=== PATIENT | female | born 1950 | race Caucasian/White ===

== ENCOUNTER 2023-02-01 08:08 | Inpatient (IN) ==
--- NOTE | 2022-12-02 14:22 | Anesthesiology Consultation ---
Date of Service December 02, 2022 Assessment & Plan (1) Encounter for pre-operative examination: Plan - will attempt to obtain copy of most recent AAA and carotid imaging. - cardiology 06/02/22: "...BP borderline, HR appropriate...denies CP...abnormal EKG-inferior and lateral ST depression indicative of RCA and LCx ischemia; normal nuclear testing, normal LV function 02/2021 with poor exercise tolerance 12/2020. 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 To surgeon's discretion if preop COVID testing is needed. Chart Review Chart Review: Pending: Refer to Additional Notes / Consult section and Patient NOT seen in Pre Admission Testing History Surgery Operation Date: 12/15/22 10:05 Proposed Procedures p L4-S1 Decompression and Fusion, Spinal Cord Monitoring - Dean Guillen DO Height/Weight Height: 5 ft 3.25 in Weight: 49.895 kg Allergies Allergy/AdvReac Type Severity Reaction Status Date / Time egg Allergy Swelling Verified 11/30/22 13:54 of Lip/Tongue/Throat erythromycin base Allergy Vomiting Verified 11/30/22 13:50 Medications Home Medications Medication Instructions Recorded Confirmed Last Taken Probiotic 1 cap PO QAM 11/30/22 11/30/22 Unknown aspirin 81 mg capsule 81 mg PO QPM 11/30/22 11/30/22 Unknown carvedilol 6.25 mg tablet 6.25 mg PO BID 11/30/22 11/30/22 Unknown fenofibrate nanocrystallized 145 145 mg PO QAM 11/30/22 11/30/22 Unknown mg tablet levothyroxine 25 mcg tablet 25 mcg PO QAM 11/30/22 11/30/22 Unknown lisinopril 5 mg tablet 5 mg PO QAM 11/30/22 11/30/22 Unknown omeprazole 20 mg delayed 20 mg PO QAM 11/30/22 11/30/22 Unknown release,disintegrating tablet psyllium seed (sugar) oral powder 2 tbsp PO QAM 11/30/22 11/30/22 Unknown rosuvastatin 20 mg tablet 20 mg PO QAM 11/30/22 11/30/22 Unknown Past Medical History Medical History AAA (abdominal aortic aneurysm) last check 07/2022 @ [facility] [place] Chronic back pain GERD (gastroesophageal reflux disease) History of depression History of DVT (deep vein thrombosis) LUE 3-4 years ago following vascular procedure. Treated with AC. History of gastric ulcer HLD (hyperlipidemia) HTN (hypertension) Hypothyroidism Osteoarthritis PONV (postoperative nausea and vomiting) Poor appetite Raynaud disease Past Family History Family History Other No family history of adverse response to anesthesia Past Surgical History Surgical History History of appendectomy History of bowel resection History of cataract surgery History of cholecystectomy History of colonoscopy History of D&C multiple History of esophagogastroduodenoscopy (EGD) History of hysterectomy History of intravascular stent placement LLE History of wisdom tooth extraction Social History Smoking Status: Current every day smoker tobacco type: cigarettes Smoking cigarettes per day: 1/2 ppd Do You Dip or Chew Tobacco: No Hx Alcohol Use: No Hx Substance Use: No substance use type: does not use Lab Results Anesthesia Preop Results Results Anesthesia Widget: WBC 9.34 K/ul (4.8-10.8) 11/26/22 Hgb 16.5 g/dl (12.0-16.0) H 11/26/22 Hct 48.9 % (37.0-47.0) H 11/26/22 Plt 311 K/uL (130-400) 11/26/22 Na 142 mmol/L (136-145) 11/26/22 K 4.1 mmol/L (3.5-5.1) 11/26/22 Cl 105 mmol/L (98-107) 11/26/22 CO2 32 mmol/L (21-32) 11/26/22 BUN 8 mg/dl (6-23) 11/26/22 Creat 0.73 mg/dl (0.6-1.2) 11/26/22 Glucose Level 104 mg/dl (70-99(Fasting)) H 11/26/22 PT 11.1 Seconds (9.0-12.0) 11/26/22 PTT 23.9 Seconds (21.0-31.0) 11/26/22 INR 1.0 (0.9-1.1) 11/26/22 Urine Color Yellow 11/26/22 Urine Appearance Clear (Clear) 11/26/22 Urine pH 7.0 (4.5-7.5) 11/26/22 Urine Specific [place] 1.012 (1.000-1.030) 11/26/22 Urine Protein Negative (Negative) 11/26/22 Urine Glucose (UA) Negative (Negative) 11/26/22 Urine Ketones Negative (Negative) 11/26/22 Urine Blood Negative (Negative) 11/26/22 Urine Nitrite Negative (Negative) 11/26/22 Urine Bilirubin Negative (Negative) 11/26/22 Urine Urobilinogen Negative (Negative) 11/26/22 Urine Leukocyte Esterase Negative (Negative) 11/26/22 Blood Type A Positive 11/26/22 Antibody Screen NEGATIVE 11/26/22 Testing Electrocardiogram Date: 11/26/22 Sinus rhythm with marked sinus arrhythmia with occasional PVCs, rate [address] and T wave abnormality, consider inferolateral ischemia Chest X-Ray Date: 11/26/22 No prior studies are available for comparison at the time of dictation. The cardiomediastinal silhouette is unremarkable noting atherosclerotic calcification of the thoracic aorta. Nonspecific interstitial thickening is likely chronic. Scarring/atelectasis is noted at the lung bases. No airspace consolidation or pleural effusion is identified. There is no pneumothorax. The skeletal structures are osteopenic. The bony thorax appears intact. Cholecystectomy clips are seen in the right upper quadrant. IMPRESSION: No active disease in the chest. Echocardiogram Date: 02/11/21 EF 60-65% No significant valvular pathology Stress Test Date: 02/11/21 Pharmacologic MPHR 58% Non-diagnostic ECG Relatively low probability of CAD or ischemia Low risk study No significant infarction EF 62%
[~2023-02-01 08:08] MED LIST: ACETAMINOPHEN 500 MG TAB PO SCH; GABAPENTIN 300 MG CAP PO SCH; LR 15ML/HR IV SCH; ceFAZolin 2000MG 2,000 MG/15 ML SYR IV SCH
[2023-02-01] MEDS ORDERED: ROCURONIUM BROMIDE 10 MG/ML 5 ML VIAL IV ONE ×5 (09:44→11:45)
[2023-02-01] MEDS ORDERED: PROPOFOL IV EMULSION 10 MG/ML 20 ML VIAL IV ONE (09:44)
[2023-02-01] MEDS ORDERED: DEXAMETHASONE SOD INJ 4 MG/ML VIAL ONE (09:46)
[2023-02-01] MEDS ORDERED: LIDOCAINE 2% MPF LOCAL 5 ML VIAL ONE (09:46)
[2023-02-01] MEDS ORDERED: ONDANSETRON INJ 2 MG/ML 2 ML VIAL ONE (09:46)
[2023-02-01] MEDS ORDERED: fentaNYL citrate PF 100 MCG/2 ML VIAL IV PRN (09:48)
[2023-02-01] MEDS ORDERED: ATROPINE SULFATE 0.1 MG/ML 10ML SYR IV PRN (09:48)
[2023-02-01] MEDS ORDERED: ONDANSETRON INJ 2 MG/ML 2 ML VIAL IV PRN ×2 (09:48→13:44)
[2023-02-01] MEDS ORDERED: ALBUT/IPRATROP 3MG/0.5MG NEB 3 ML VIAL NEB STA (09:48)
[2023-02-01] MEDS ORDERED: ePHEDrine sulfate 50 MG/ML AMP IV PRN (09:48)
[2023-02-01] MEDS ORDERED: HYDROmorphone INJ 2 MG/ML SYR/VIAL IV PRN (09:48)
--- NOTE | 2023-02-01 09:55 | History & Physical Bridge Note ---
Date of Service February 01, 2023 History & Physical Bridge Note I have examined the patient, reviewed the History & Physical and in the interval since the performance of the History & Physical I have noted the following changes of clinical significance: no changes noted
--- NOTE | 2023-02-01 09:57 | History & Physical Report ---
Date of Service February 01, 2023 Assessment & Plan (1) Lumbar disc herniation with radiculopathy: Plan: L4-S1 decompression and fusion History of Present Illness Chief Complaint: Back and leg pain Primary Care Provider: Bolivar Moore MD This is a 72-year-old female who presents with chronic persistent back and leg pain after failing course of nonoperative care she is here for surgical invention. Allergies Allergy/AdvReac Type Severity Reaction Status Date / Time egg Allergy Swelling Verified 02/01/23 08:39 of Lip/Tongue/Throat erythromycin base Allergy Vomiting Verified 02/01/23 08:39 Home Medications Medication Instructions Recorded Confirmed Type Probiotic 1 cap PO QAM 11/30/22 02/01/23 History aspirin 81 mg capsule 81 mg PO QPM 11/30/22 02/01/23 History carvedilol 6.25 mg tablet 6.25 mg PO BID 11/30/22 02/01/23 History fenofibrate nanocrystallized 145 145 mg PO QAM 11/30/22 02/01/23 History mg tablet levothyroxine 25 mcg tablet 25 mcg PO QAM 11/30/22 02/01/23 History lisinopril 5 mg tablet 5 mg PO QAM 11/30/22 02/01/23 History psyllium seed (sugar) oral powder 2 tbsp PO QAM 11/30/22 02/01/23 History rosuvastatin 20 mg tablet 20 mg PO QAM 11/30/22 02/01/23 History Past Med/Surg History Medical History (Updated 02/01/23 @ 09:57 by Dean Guillen DO) AAA (abdominal aortic aneurysm) last check 11/2022 @ [facility] Carotid artery disease 50-69% stenosis ICAs bilat Chronic back pain GERD (gastroesophageal reflux disease) History of depression History of DVT (deep vein thrombosis) LUE 3-4 years ago following vascular procedure. Treated with AC. History of gastric ulcer HLD (hyperlipidemia) HTN (hypertension) Hypothyroidism Osteoarthritis PONV (postoperative nausea and vomiting) Poor appetite Raynaud disease Surgical History History of appendectomy History of bowel resection History of cataract surgery History of cholecystectomy History of colonoscopy History of D&C multiple History of esophagogastroduodenoscopy (EGD) History of hysterectomy History of intravascular stent placement LLE History of wisdom tooth extraction Family History Other No family history of adverse response to anesthesia Social History Smoking Status: Current every day smoker Cigarettes Per Day: 1/2 ppd; Second Hand Exposure: No; Do You Dip or Chew Tobacco: No; Tobacco Cessation Education Requested by Patient: No Hx Alcohol Use: No Hx Substance Use: No Preferred Language: Central African Communication Ability: Effective Pecan Sheller Required: No Beliefs That Will Affect Care: None and Moravian Moravian Beliefs: Samaritan Current Living Situation: Alone Feels Safe at Home: Yes Safety Concerns: Feels Safe At This Time Assistive Devices: Cane, Glasses and Walker Physical Exam Physical Exam: Patient is alert and oriented Heart regular rhythm Lungs clear Results & Data Results & Data Vital Signs (Past 12 Hours) Vital Signs Temp Pulse Resp BP Pulse Ox O2 Del Method 02/01/23 08:51 36.7 C 73 20 138/67 98 Room Air
[2023-02-01] MEDS ORDERED: ceFAZolin 330 MG/ML 1 GM VIAL ONE (10:03)
[2023-02-01] MEDS ORDERED: BUPIVACAINE/EPINEPHRINE 0.25% 1:200,000 30 ML VIAL ONE (10:03)
[2023-02-01] MEDS ORDERED: fentaNYL citrate PF 100 MCG/2 ML VIAL ONE (10:06)
[2023-02-01] MEDS ORDERED: FLOSEAL HEMOSTATIC MATRIX 10ML TOP ONE (11:06)
[2023-02-01] MEDS ORDERED: ALBUTEROL HFA 8 GM INHALER INH ONE (12:05)
--- NOTE | 2023-02-01 12:09 | Operative Report ---
Post Operative Report Pre & Post Diagnosis Operation Date: 02/01/23 10:05 Pre-Op Diagnosis: Lumbar disc herniation with radiculopathy Post-Op Diagnosis: Lumbar disc herniation with radiculopathy I identified the patient and participated in the time-out.: Yes Procedure Operation Date: 02/01/23 10:05 Actual Procedures #1 lumbar decompression bilaterally facetectomies and foraminotomies L3-L4, L4-5 and L5-S1. #2 posterior spinal fusion L4-S1. #3 placement posterior instrumentation L4-S1. #4 interbody fusion L4-L5 L5-S1. #5 placement of Spira 9 x 26 mm at L4-5 and 12 x 26 at L5-S1. #6 placement locally harvested morselized autograft posterior gutters. #7 placement of I factor combined with V toss in the interbody space and and infuse in the posterior gutters. Surgeon Dean Guillen, Customer Success Advocate Kami Aguiar Estimated Blood Loss 50 Findings Consistent with Post-Op Diagnosis Specimens None Indications This is a 72-year-old female who presents above-mentioned diagnosis after failing course of nonoperative care she is here for the above-mentioned procedure. Description of Procedure Patient was met with identified informed consent obtained. Patient was then taken to the operative suite underwent a patient placed in a prone position the Ray table top of the Mateusz frame. All bony prominences well-padded eyes inspected to ensure no external pressure placed upon the. This point the lumbar spine was prepped and draped in normal sterile fashion. Sharp dissection with the assistance of Bovie cautery was performed down to and exposing the lamina and transverse processes of L4 L5 and sacral ala bilaterally. From a caudal cephalad fashion complete laminectomy L5 L4 partial laminectomy of L3 was performed including bilaterally facetectomies foraminotomies addressing severe spinal stenosis as well as addressing the massive disc herniation on the right side of the canal. Pedicle screws were then placed in L4-L5 and S1 levels bilaterally with assistance of fluoroscopy and the properly sized cherelle placed. By way of transforaminal approach and right complete discectomy L5-S1 was performed endplates curetted to subcortical bleeding bone and a 12 x 26 mm Spira cage with I factor tapped in position. Then proceeded to L for L5 and again by way of a transforaminal portion right complete discectomy performed endplates curetted to subcortical bleeding bone and a 9 x 26 mm Spira cage with I factor tapped in position. The rods were then locked into final position bilaterally. The transverse processes of L4 for L5 and sacral ala burred to subcortical bleeding bone. Infuse combined with V testing locally harvested morselized autograft was placed in the posterior gutters. 15 round ERLIN drain inserted. The incision was then closed with 1 Vicryl to fascia 2-0 Vicryl subcutaneously and 4 Monocryl for final skin closure. Steri-Strip sterile dressing placed. Patient awakened taken to PACU stable condition. Please note spinal cord monitoring was utilized at the procedure no changes noted. Lastly Kami Aguiar was present at the entire surgeon while the patient positioning complex portions of the surgery and final skin closure. I attest to the content of the Intraoperative Record and any orders documented therein. Any exceptions are noted below.
[2023-02-01] MEDS ORDERED: ARTIFICIAL TEARS OP OINT 3.5 GM TUBE ONE (12:11)
--- NOTE | 2023-02-01 12:18 | Fluoroscopy Report ---
FL lumbar spine 2-3V CLINICAL HISTORY: L4-S1 Decompression/Fusion COMPARISON STUDY: None. FLUOROSCOPY TIME: 41 seconds FLUOROSCOPY IMAGES: 2 Ka,r: 10.1 mGy FINDINGS: Posterior decompression and fusion from L4 through S1 with pedicle screws and rods. Hardwar e appears intact. Disc spacers are in place. A vascular stent is noted. IMPRESSION: Fluoroscopic assistance as above. ACT 112: Negative or not required by law. Electronically signed by: Ran Campoverde M.D. 02/01/2023 12:17 PM
--- NOTE | 2023-02-01 13:08 | Anesthesiology Progress Note ---
Date of Service February 01, 2023 Anesthesia Post Procedure Vital Signs Vital Signs: Temp Pulse Pulse Resp BP BP Pulse Ox 02/01/23 13:00 57 L 16 105/63 95 02/01/23 12:50 56 L 12 124/49 L 100 02/01/23 12:40 57 L 15 117/58 L 100 02/01/23 12:30 59 L 13 122/52 L 100 02/01/23 12:20 97.5 F L 76 16 123/57 L 100 02/01/23 10:00 67 16 97 02/01/23 08:51 98.1 F 73 20 138/67 98 O2 Del Method O2 Flow Rate 02/01/23 13:00 Room Air 0 02/01/23 12:50 Room Air 0 02/01/23 12:40 Oxymask 6 02/01/23 12:30 Oxymask 9 02/01/23 12:20 Oxymask 9 02/01/23 10:00 Room Air 02/01/23 08:51 Room Air Pain Intensity Right Lower Back: Pain Intensity: 4 Transfer of Care Handoff Completed per policy Notes Mental Status: alert / awake / arousable and participated in evaluation Patient Amnestic to Procedure: Yes Nausea / Vomiting: adequately controlled Pain: adequately controlled Airway Patency, RR, SpO2: stable & adequate BP & HR: stable & adequate Hydration State: stable & adequate Anesthetic Complications: no major complications apparent and Pt Satisfied with anesthetic care
[2023-02-01] MEDS ORDERED: MAGNESIUM HYDROXIDE SUSP 30 ML UDC PO PRN (13:44)
[2023-02-01] MEDS ORDERED: diphenhydrAMINE Capsule 25 MG CAP PO PRN (13:44)
[2023-02-01] MEDS ORDERED: HYDROmorphone INJ 0.5 MG/0.5 ML SYR IV PRN (13:44)
[2023-02-01] MEDS ORDERED: LORazepam 2 MG/1 ML VIAL IV PRN (13:44)
[2023-02-01] MEDS ORDERED: PROMETHAZINE HCL 12.5 MG in SODIUM CHLORIDE 0.9% 50 ML IV PRN (13:44)
[2023-02-01] MEDS ORDERED: ACETAMINOPHEN 1,000 MG/100 ML VIAL IV PRN (13:44)
[2023-02-01] MEDS ORDERED: HYDROmorphone INJ 1 MG/ML SYRINGE IV PRN (13:44)
[2023-02-01] MEDS ORDERED: SOD PHOSPHATE/SOD BIPHOSPHATE ENEMA 132 ML BTL PR PRN (13:44)
[2023-02-01] MEDS ORDERED: bisacodyL 10 MG SUPP PR PRN (13:44)
[2023-02-01] MEDS ORDERED: LORazepam 0.5 MG TAB PO PRN (13:44)
[2023-02-01] MEDS ORDERED: NALOXONE HCL 0.4 MG/1 ML VIAL/CARP IV PRN (13:44)
[2023-02-01] MEDS ORDERED: METOCLOPRAMIDE HCL INJ 5 MG/ML 2 ML VIAL IV PRN (13:44)
[2023-02-01] MEDS ORDERED: hydrOXYzine HCl 25 MG TAB PO PRN (13:44)
[2023-02-01] MEDS ORDERED: FAMOTIDINE 20 MG TAB PO PRN (13:44)
[2023-02-01] MEDS ORDERED: oxyCODONE HCL IR 5 MG TAB (IMMEDIATE RELEASE) PO PRN (13:44)
[2023-02-01] MEDS ORDERED: DO NOT ADMINISTER PNEUMOCOCCAL VACCINE PRN (13:44)
[2023-02-01] MEDS ORDERED: ALUMINUM/MAGNESIUM SUSP 30 ML UDC PO PRN (13:44)
[2023-02-01] MEDS ORDERED: ONDANSETRON 4 MG OD TAB PO PRN (13:44)
[2023-02-01] MEDS ORDERED: DO NOT ADMINISTER FLU VACCINE PRN (13:44)
[2023-02-01] MEDS: NICOTINE 7 MG/24 HR TDSY TD SCH (14:47)
[2023-02-01] MEDS: SODIUM CHLORIDE 0.9% 1000ML 1,000 ML IV SCH (14:48)
--- NOTE | 2023-02-01 15:12 | Hospitalist Consultation ---
Date of Consultation February 01, 2023 Assessment & Plan (1) Lumbar disc herniation with radiculopathy: POD#0 L4-S1 decompression and fusion by Dr. Guillen Activity and wound care orders as per ortho Pain control with bowel regimen PT/OT Monitor H/H for acute blood loss anemia and transfuse blood products PRN EBL 50cc (2) HTN (hypertension): Continue carvedilol and lisinopril (3) Carotid artery disease: Continue ASA, statin, fenofibrate (4) AAA (abdominal aortic aneurysm): Infrarenal [address] 2018, follows with vascular surgery DVT PROPHYLAXIS TEDs/SCDs as per spine Ortho Patient seen in collaboration with Dr. Barajas I spent a total of 45 minutes coordinating, documenting, and providing care for this patient excluding time spent in the performance of separately billed services. This included personally reviewing all current laboratories and imaging studies, medication reconciliation, outpatient chart review, and discussion with specialists. Supervising Physician Co-Signing Physician Notes Pt was see and examined. Agreed with Sulma SOL exam. assessment and plan. 72-year-old female with PMH HTN, hypothyroidism, dyslipidemia, carotid stenosis, AAA, tobacco abuse who failed conservative management for worsening low back pain and leg pain. S/P L4-S1 decompression and fusion today by Dr. Guillen. Hospitalist was consulted for postop medical management. No postop complication. Continue Incentive spirometry. Pain control as per ortho. PT/OT evaluation. Continue monitor H/H. fall precaution. MD Karl History of Present Illness Reason for Consultation: Postop medical management Requesting Physician: Dr. Guillen Attending Physician: Dean Guillen DO History of Present Illness 72-year-old female with PMH HTN, hypothyroidism, dyslipidemia, carotid stenosis, AAA, tobacco abuse, and other problems listed below who is s/p L4-S1 decompression and fusion today by Dr. Guillen. History obtained from patient and review of outpatient PCP and cardiology records. Postoperatively, the patient is doing well. She reports some mild tingling in the right leg which was present prior to surgery and is now improved. She reports her pain is well controlled. Denies weakness in the lower extremities. No chest pain or shortness of breath. Denies lightheadedness and dizziness. No abdominal pain or nausea. Brar catheter is in place draining clear yellow urine. Allergies Allergy/AdvReac Type Severity Reaction Status Date / Time egg Allergy Swelling Verified 02/01/23 08:39 of Lip/Tongue/Throat erythromycin base Allergy Vomiting Verified 02/01/23 08:39 Home Medications Medication Instructions Recorded Confirmed Type Probiotic 1 cap PO QAM 11/30/22 02/01/23 History aspirin 81 mg capsule 81 mg PO QPM 11/30/22 02/01/23 History carvedilol 6.25 mg tablet 6.25 mg PO BID 11/30/22 02/01/23 History fenofibrate nanocrystallized 145 145 mg PO QAM 11/30/22 02/01/23 History mg tablet levothyroxine 25 mcg tablet 25 mcg PO QAM 11/30/22 02/01/23 History lisinopril 5 mg tablet 5 mg PO QAM 11/30/22 02/01/23 History psyllium seed (sugar) oral powder 2 tbsp PO QAM 11/30/22 02/01/23 History rosuvastatin 20 mg tablet 20 mg PO QAM 11/30/22 02/01/23 History Patient History Medical History AAA (abdominal aortic aneurysm) last check 11/2022 @ [facility] Carotid artery disease 50-69% stenosis ICAs bilat Chronic back pain GERD (gastroesophageal reflux disease) History of depression History of DVT (deep vein thrombosis) LUE 3-4 years ago following vascular procedure. Treated with AC. History of gastric ulcer HLD (hyperlipidemia) HTN (hypertension) Hypothyroidism Osteoarthritis PONV (postoperative nausea and vomiting) Poor appetite Raynaud disease Surgical History History of appendectomy History of bowel resection History of cataract surgery History of cholecystectomy History of colonoscopy History of D&C multiple History of esophagogastroduodenoscopy (EGD) History of hysterectomy History of intravascular stent placement LLE History of wisdom tooth extraction Family History Other No family history of adverse response to anesthesia Social History Smoking Status: Current every day smoker Cigarettes Per Day: 1/2 ppd; Second Hand Exposure: No; Do You Dip or Chew Tobacco: No; Tobacco Cessation Education Requested by Patient: No Hx Alcohol Use: No Hx Substance Use: No Preferred Language: Bulgarian Communication Ability: Effective Entry Level Business Analyst Required: No Beliefs That Will Affect Care: None and Taoism Taoism Beliefs: Yarsanism Current Living Situation: Alone Feels Safe at Home: Yes Safety Concerns: Feels Safe At This Time Assistive Devices: Cane, Glasses and Walker Review of Systems Review of Systems: ROS per HPI, all other systems reviewed and negative Physical Exam Constitutional: + thin; no acute distress Eyes: PERRL, conjunctivae normal, anicteric sclerae ENMT: external ear and nose normal, oropharynx normal Respiratory: normal respiratory effort, lungs clear to auscultation Cardiovascular: Rate/Rhythm: regular rate and regular rhythm Vessels: normal peripheral pulses Extremities: no edema Gastrointestinal (Abdomen): normal bowel sounds, soft, nontender, no hepatosplenomegaly Musculoskeletal: S/p back surgery, pedal pushes and pulls strong bilaterally Skin: no rashes, warm and dry Neurologic: PERRL, EOMI, accommodation nl, no face palsy, no dysarthria Psychiatric: A+Ox3, euthymic affect Results & Data Results & Data Vital Signs (Past 12 Hours) Vital Signs Temp Pulse Pulse Resp BP BP Pulse Ox 02/01/23 14:50 36.6 C 68 20 155/98 H 99 02/01/23 14:24 36.4 C L 59 L 18 111/48 L 98 02/01/23 13:45 36.3 C L 58 L 20 104/52 L 96 02/01/23 13:20 54 L 12 113/46 L 95 02/01/23 13:10 36.5 C 56 L 18 126/48 L 95 02/01/23 13:00 57 L 16 105/63 95 02/01/23 12:50 56 L 12 124/49 L 100 02/01/23 12:40 57 L 15 117/58 L 100 02/01/23 12:30 59 L 13 122/52 L 100 02/01/23 12:20 36.4 C L 76 16 123/57 L 100 02/01/23 10:00 67 16 97 02/01/23 08:51 36.7 C 73 20 138/67 98 O2 Del Method O2 Flow Rate 02/01/23 14:50 Room Air 02/01/23 14:24 Room Air 02/01/23 13:45 Room Air 02/01/23 13:20 Room Air 0 02/01/23 13:10 Room Air 0 02/01/23 13:00 Room Air 0 02/01/23 12:50 Room Air 0 02/01/23 12:40 Oxymask 6 02/01/23 12:30 Oxymask 9 02/01/23 12:20 Oxymask 9 02/01/23 10:00 Room Air 02/01/23 08:51 Room Air
[2023-02-01] MEDS: ceFAZolin 1000MG 1,000 MG/7.5 ML SYR IV SCH (17:03)
[2023-02-01] MEDS: carvediloL 6.25 MG TAB PO SCH (20:48)
[2023-02-01] MEDS: traMADol HCL 50 MG TABLET PO PRN (20:49)
[2023-02-01] MEDS: DOCUSATE SODIUM/SENNA 50/8.6MG TAB PO SCH (20:49)
[2023-02-01] MEDS: ASPIRIN 81 MG ECTAB PO SCH (20:51)
[2023-02-02] MEDS: SODIUM CHLORIDE 0.9% 1000ML 1,000 ML IV SCH ×3 (00:12→19:16)
[2023-02-02] MEDS: ceFAZolin 1000MG 1,000 MG/7.5 ML SYR IV SCH (01:47)
[2023-02-02] MEDS: ACETAMINOPHEN 500 MG TAB PO PRN (01:52)
[2023-02-02] MEDS: POLYETHYLENE (MIRALAX) 17 GM PACK PO SCH ×3 (05:45→17:11)
[2023-02-02] MEDS: LEVOTHYROXINE SODIUM 25 MCG TABLET PO SCH (06:02)
[2023-02-02 06:16] LABS: Basophils # (auto) 0.04 K/uL (0-0.2); Basophils % (auto) 0.3 %; Eosinophils # (auto) 0.02 K/uL (0-0.50); Eosinophils % (auto) 0.2 %; Hematocrit (blood only) 38.7 % (37.0-47.0); Hemoglobin 12.9 g/dl (12.0-16.0); Immature Granulocytes # (auto) 0.06 K/uL (0.01-0.20); Immature Granulocytes % (auto) 0.5 %; Lymphocytes # (auto) 2.27 K/uL (1.2-3.4); Lymphocytes % (auto) 18.4 %; Mean Corpuscular Hemoglobin 34.6 pg (25.0-34.0); Mean Corpuscular Hgb Conc 33.3 g/dL (32.0-36.0); Mean Corpuscular Volume 103.8 fL (80.0-100.0); Monocytes # (auto) 1.06 K/uL (0.11-0.59); Monocytes % (auto) 8.6 %; Neutrophils # (auto) 8.89 K/uL (1.40-6.50); Platelet Count 295 K/uL (130-400); RDW Coefficient of Variation 12.7 % (11.5-14.5); RDW Standard Deviation 48.3 fL (36.4-46.3); Red Blood Count 3.73 M/uL (4.20-5.40); White Blood Count 12.34 K/ul (4.8-10.8)
[2023-02-02 06:28] LABS: Calcium 9.1 mg/dl (8.6-10.3); Creatinine Clr Calc Pharmacy 48.6 ml/min; Est GFR (African American) 91.7 ml/min; Est GFR (Non-African American) 79.1 ml/min; Potassium 4.1 mmol/L (3.5-5.1)
[2023-02-02] MEDS: carvediloL 6.25 MG TAB PO SCH (08:31)
[2023-02-02] MEDS: ROSUVASTATIN CALCIUM 20 MG TAB PO SCH (08:32)
[2023-02-02] MEDS: NICOTINE 7 MG/24 HR TDSY TD SCH (08:32)
[2023-02-02] MEDS: dexAMETHasone 6 MG in SYRINGE 0 ML IV SCH (08:32)
[2023-02-02] MEDS: FENOFIBRATE NANOCRYSTALLIZED 145 MG TABLET PO SCH (08:32)
[2023-02-02] MEDS ORDERED: lisinopril 5 MG TAB PO SCH (09:00)
[2023-02-02] MEDS: ADVANCED PROBIOTIC 1250 MG CAPSULE PO SCH (09:54)
--- NOTE | 2023-02-02 11:39 | Orthopedic Progress Note ---
Date of Service February 02, 2023 Assessment & Plan (1) Lumbar disc herniation with radiculopathy: Plan: At this time we will initiate physical therapy monitor ERLIN output and hopefully discharge home next few days with home health. Admission and Anticipated Discharge Date Admission Date: February 01, 2023 Subjective Back pain controlled leg pain markedly improved Physical Exam Physical Exam: Patient is in the chair at the bedside. Is constricted testing. Appears comfortable. Results & Data Vital Signs (Past 12 Hours) Vital Signs Temp Pulse Resp BP BP Pulse Ox O2 Del Method 02/02/23 08:35 Room Air 02/02/23 08:31 66 02/02/23 07:36 36.6 C 58 L 16 121/50 L 98 Room Air 02/02/23 03:00 36.4 C L 63 16 103/56 L 96 Room Air
[2023-02-02] MEDS ORDERED: carvediloL 3.125 MG TAB PO SCH (12:51)
[2023-02-02] MEDS ORDERED: SODIUM CHLORIDE 0.9% 1000ML 250 ML IV ONE ×2 (12:51→14:16)
[2023-02-02 15:22] LABS: Hematocrit (blood only) 34.5 % (37.0-47.0); Hemoglobin 11.5 g/dl (12.0-16.0); Mean Corpuscular Hemoglobin 34.8 pg (25.0-34.0); Mean Corpuscular Hgb Conc 33.3 g/dL (32.0-36.0); Mean Corpuscular Volume 104.5 fL (80.0-100.0); Mean Platelet Volume 10.1 fL (9.4-12.4); Platelet Count 285 K/uL (130-400); RDW Coefficient of Variation 12.8 % (11.5-14.5); RDW Standard Deviation 49.1 fL (36.4-46.3); White Blood Count 9.66 K/ul (4.8-10.8)
--- NOTE | 2023-02-02 17:15 | Hospitalist Progress Note ---
Date of Service February 02, 2023 Assessment & Plan (1) Lumbar disc herniation with radiculopathy: Plan: S/P L4-S1 decompression and fusion by Dr. Guillen on 02/01/23 Activity and wound care orders as per ortho Pain control with bowel regimen PT/OT Intensive spirometry Bowel regimen to prevent constipation Monitor H&H and transfuse as needed (2) HTN (hypertension): Plan: Postoperative hypotension Hold carvedilol, lisinopril Continue IV fluids Minimize IV pain medications as able Hypothyroidism Continue levothyroxine (3) Carotid artery disease: Plan: Continue ASA, statin, fenofibrate (4) AAA (abdominal aortic aneurysm): Plan: Infrarenal [address] 2017, follows with vascular surgery DVT PROPHYLAXIS TEDs/SCDs as per spine Ortho Admission and Anticipated Discharge Date Admission Date: February 01, 2023 Subjective Patient is seen and examined at bedside Back pain is controlled Denies any chest pain, dyspnea, nausea, abdominal pain Was hypotensive this morning associated with minimal dizziness with PT No other complaints Review of Systems Review of Systems: All systems reviewed & are unremarkable except as noted in Subjective Physical Exam Physical Exam: Physical Exam: Vitals signs as noted above General Appearance: Thin, frail, no apparent distress Head: normocephalic, Atraumatic Eyes: normal inspection, EOMI Neck: supple, Trachea midline Respiratory/Chest: Normal breath sounds, CTA, No accessory muscle use Cardiovascular: S1, S2, No murmur Abdomen/GI:Soft, Non tender, Bowel sounds present Back: Surgical site in dressing Extremities/Musculoskeletal:normal inspection, no edema Neurologic/Psych:AAOX3, grossly no focal neurological deficits Skin: normal color, warm Results & Data Results & Data Vital Signs (Past 12 Hours) Vital Signs Temp Pulse Resp BP BP Pulse Ox O2 Del Method 02/02/23 15:42 36.7 C 55 L 16 107/50 L 98 Room Air 02/02/23 14:16 54 L 95/52 L 96 Room Air 02/02/23 13:28 50 L 92/49 L 97 Room Air 02/02/23 11:57 36.6 C 56 L 16 85/44 L 80/46 L 96 Room Air 02/02/23 08:35 Room Air 02/02/23 08:31 66 02/02/23 07:36 36.6 C 58 L 16 121/50 L 98 Room Air Laboratory Results Short CBC 02/02/23 02/02/23 Range/Units 05:46 15:00 WBC 12.34 H 9.66 (4.8-10.8) K/ul Hgb 12.9 11.5 L (12.0-16.0) g/dl Hct 38.7 34.5 L (37.0-47.0) % Plt Count 295 285 (130-400) K/uL BMP 02/02/23 05:46 Sodium 139 Potassium 4.1 Chloride 107 Carbon Dioxide 27 BUN 15 Creatinine 0.75 Glucose 87 Calcium 9.1
[2023-02-02] MEDS: traMADol HCL 50 MG TABLET PO PRN (20:31)
[2023-02-02] MEDS: DOCUSATE SODIUM/SENNA 50/8.6MG TAB PO SCH (20:32)
[2023-02-02] MEDS: ASPIRIN 81 MG ECTAB PO SCH (20:32)
[2023-02-03] MEDS: POLYETHYLENE (MIRALAX) 17 GM PACK PO SCH ×3 (02:23→12:46)
[2023-02-03] MEDS: LEVOTHYROXINE SODIUM 25 MCG TABLET PO SCH (05:38)
[2023-02-03] MEDS: traMADol HCL 50 MG TABLET PO PRN (05:47)
[2023-02-03 07:49] LABS: Hematocrit (blood only) 35.9 % (37.0-47.0); Mean Corpuscular Hemoglobin 35.1 pg (25.0-34.0); Mean Corpuscular Hgb Conc 33.4 g/dL (32.0-36.0); Mean Platelet Volume 10.3 fL (9.4-12.4); Platelet Count 272 K/uL (130-400); RDW Standard Deviation 50.1 fL (36.4-46.3); Red Blood Count 3.42 M/uL (4.20-5.40); White Blood Count 11.17 K/ul (4.8-10.8)
[2023-02-03 08:15] LABS: Calcium 8.7 mg/dl (8.6-10.3); Potassium 4.6 mmol/L (3.5-5.1)
[2023-02-03 08:20] LABS: BUN Creatinine Ratio 27.1 (10-20); Creatinine Clr Calc Pharmacy 52.1 ml/min; Est GFR (African American) 99.6 ml/min
[2023-02-03] MEDS: dexAMETHasone 6 MG in SYRINGE 0 ML IV SCH (09:23)
[2023-02-03] MEDS: FENOFIBRATE NANOCRYSTALLIZED 145 MG TABLET PO SCH (09:23)
[2023-02-03] MEDS: ROSUVASTATIN CALCIUM 20 MG TAB PO SCH (09:24)
[2023-02-03] MEDS: ADVANCED PROBIOTIC 1250 MG CAPSULE PO SCH (09:24)
[2023-02-03] MEDS: NICOTINE 7 MG/24 HR TDSY TD SCH (09:29)
--- NOTE | 2023-02-03 12:59 | Discharge Summary ---
Date of Service February 03, 2023 Principal Diagnosis Lumbar spinal stenosis with runny nucleus pulposus and radiculopathy Discharge Data Allergies Allergy/AdvReac Type Severity Reaction Status Date / Time egg Allergy Swelling Verified 02/01/23 08:39 of Lip/Tongue/Throat erythromycin base Allergy Vomiting Verified 02/01/23 08:39 Consultations 02/01/23 13:44 Consult Hospitalist Routine Procedures Performed Operation Date: 02/01/23 10:05 Actual Procedures p L4-S1 Decompression and Fusion, Spinal Cord Monitoring(Not Applicable) - Dean Guillen DO Ordered Studies 02/01/23 [place] lumbar spine 2-3V Routine Hospital Course (1) Lumbar disc herniation with radiculopathy: Patient with lumbar decompression fusion tolerated this well was taken to the orthopedic floor postoperatively postop day 1 she was up and ambulating progress postop day #2. ERLIN drain decreased reportedly. Excellent strength testing. Simply discharged home. Discharge orders instructions from the chart for further review. Total Time Total Time Spent Total Time Spent (In Minutes): 20 minutes Discharge Plan Discharge Items Patient Disposition: Home - Home Health Services Reason For Visit: Unspecified Thoracic, Thoracolumbar and Lumbosacra Discharge Diagnosis: Lumbar spinal stenosis with hernia nucleus pulposus and radiculopathy Activity: As commented below Non-emergency contact: Primary Care Provider Call non-emergency contact if: you have any medication questions Follow-up/Referrals: Bolivar Moore MD [Primary Care Provider] - Diet: Regular Addtl Attending Provider Instructions: ACTIVITY RECOMMENDATIONS: SELF CARE INSTRUCTIONS AFTER THORACIC/LUMBAR FUSIONS 1. You may walk to your tolerance. It is good exercise for your legs and back. Expect some back and intermittent leg aches and pains. 2. You may perform "counter-top" level activities (make a sandwich, evon with a project, etc.). 3. No bending or lifting of more than 10 pounds or back twisting of any nature (roll like a log when turning in bed). 4. You may ride in a car for 20-30 minutes at a time. No driving until after your first visit with your doctor. 5. Frequent changes of position and restricting sitting to 30 minutes at a time will help limit the amount of back spasms and stiffness you may experience. 6. You may discontinue the use of ambulatory aids (cane, crutches, etc.) once your strength and confidence allow. 7. You may operations vocational instructor the shower and let water strike your incision when you arrive home at least once daily. Do not take a tub bath, sit in a hot tub or go into a swimming pool until after your first recheck in the office. SPECIAL CARE INSTRUCTIONS: VERY IMPORTANT TO READ AND REVIEW A. Your surgical incision has been closed with a cosmetic suture under the skin that will dissolve in about 6 weeks. In 14 days, you can use a pair of clean scissors and cut the suture that is left outside of the skin at the ends of your incision. 1. The small skin tapes can be removed 7 days after surgery if they have not fallen off by that point. 2. You may keep the wound open to air as much as possible to promote healing after post-op day number 5 unless told otherwise by your doctor. 3. If you think the wound looks like it is becoming infected (redness or worsening drainage) and/or you are experiencing fever, chill or worsening back pain and muscle spasms, contact the office so that we may evaluate you as soon as possible. B. Complications are uncommon, but please contact us if you have any signs or symptoms of: 1. wound infection (fever higher than 102.5 degrees F, redness, separation of wound, drainage, or increasing pain from the incision) 2. blood clots in legs (pain, swelling, redness and warmth in legs) 3. urinary tract infection (fever higher than 102.5 degrees F, burning upon urination or increased frequency of urination) 4. nerve problems (inability to walk on your toes or heels, numbness, loss of bowel or bladder control) 5. any other symptoms that concern you C. Please call the office at if you have any concerns or ques tions about your operation or recovery. D. No smoking! Smoking drastically decreases the chance of a solid fusion. E. Do not take any anti-inflammatory medications (Indocin, Advil, Motrin, Aspirin, Naprosyn, etc.) as these may inhibit the chance of a solid fusion. Tylenol is okay to take for pain. MANAGING PAIN AFTER SPINAL SURGERY 1. Narcotic medication is intended for short-term use and will be provided for surgical pain. Surgical pain usually lasts for a period of 4-6 weeks. Narcotic medication includes Percocet, Vicodin, Darvocet, Tylenol #3 or Lortab. 2. Longer-term pain is more appropriately treated with non-narcotic medication such as Tylenol ES. 3. Muscle spasm is not appropriately treated with narcotics. Muscle relaxers such as Soma, Flexeril or Skelaxin can be used along with Tylenol ES. 4. Remember that we all live with some "aches and pains". This is not unusual or uncommon after an injury or as we get older. a. Back pain is expected and may include muscle spasms for 4 to 6 weeks after surgery. The pain should gradually improve. If the pain worsens for no apparent reason, please contact the office. b. Intermittent leg pain may also be experienced and should not be concerned about unless it worsens for no apparent reason. If so, please contact the office. 5. We will provide appropriate medication within the normal guidelines of their prescribed use. We will also be very cautious and aware of potential abuse and extended duration of patients' medication needs. a. Pain medications are for your comfort and to assist with sleep and rest so that the tissue can heal. They are not provided in order to return to normal activity and should not be used through the day. To do so or worsening pain at night can result from ongoing tissue damage and development of tolerance to the prescribed medicine. 6. Please allow 2-3 days to process refills. Prescriptions will not be mailed but must be picked up at the office. FOLLOW UP VISIT: Keep your scheduled follow-up appointment. Any questions, please call the office at . Addtl Clother In Provider Instructions: Follow up with your primary care doctor within 1 week. Monitor blood pressure at home, and write down your numbers. 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 Pending Studies at Discharge: No Stand-Alone Forms: My Dialog[employer], Smoking Cessation Medications and DC Order Prescriptions: New tramadol 50 mg tablet 50 mg PO Q6H PRN (Reason: pain, moderate) Qty: 30 0RF oxycodone 5 mg tablet 5 mg PO DAILY PRN (Reason: pain) Qty: 30 0RF Continued carvedilol 6.25 mg Tablet 6.25 mg PO BID Rx Instructions: must administer with a meal/food levothyroxine 25 mcg Tablet 25 mcg PO QAM lisinopril 5 mg Tablet 5 mg PO QAM psyllium seed (sugar) Powder 2 tbsp PO QAM fenofibrate nanocrystallized 145 mg Tablet 145 mg PO QAM aspirin 81 mg Capsule 81 mg PO QPM Probiotic 1 cap PO QAM rosuvastatin 20 mg Tablet 20 mg PO QAM Discharge Orders: Discharge Order (Routine); Ordered 02/03/23 Ordered By: Dean Guillen Admission Data Admit Date/Time: 02/01/23 12:13 Attending Provider: Dean Guillen Admit Provider: Dean Guillen Primary Care Provider: Bolivar Moore Other Providers: Gloria Esposito ; Mendez Montgomery
--- NOTE | 2023-02-03 13:21 | Hospitalist Progress Note ---
Date of Service February 03, 2023 Assessment & Plan (1) Lumbar disc herniation with radiculopathy: Plan: S/P L4-S1 decompression and fusion by Dr. Guillen on 02/01/23 Activity and wound care orders as per ortho Pain control with bowel regimen PT/OT Intensive spirometry Bowel regimen to prevent constipation Monitor H&H and transfuse as needed (2) HTN (hypertension): Plan: Postoperative hypotension Hold carvedilol, lisinopril while in patient sx resolved and BP improved today recommend pt monitor blood pressure closely as outpatient, hold BP meds if blood pressure < 110. Recommend close follow up with PCP Documented in discharge Hypothyroidism Continue levothyroxine (3) Carotid artery disease: Plan: Continue ASA, statin, fenofibrate (4) AAA (abdominal aortic aneurysm): Plan: Infrarenal [address] 2017, follows with vascular surgery DVT PROPHYLAXIS TEDs/SCDs as per spine Ortho Admission and Anticipated Discharge Date Admission Date: February 01, 2023 Supervising Physician Co-Signing Physician Notes Pt seen and examined by me, care coordinated w/ Poncho Ravi PA-C, pls refer to her note above for further detail. Pt seen sitting in the chair and later also seen ambulating in hallway with a walker. She is awake alert oriented, answer questions appropriately. Denies any chest pain shortness of breath, denies any dizziness or lightheadedness. Yesterday required IV fluids, blood pressure medications now on hold. Heart sounds regular. Lung sounds clear to auscultation. Abdomen soft nontender nondistended. Discussed with Dr. Guillen at the bedside, patient will need close follow-up with PCP and she will need blood pressure monitoring at home as well. Patient has a blood pressure cuff at home, and understands the plan. She reports she also follows with cardiology in [place]. We will recheck her vital signs, blood pressure and heart rate this afternoon, and likely plan to discharge this afternoon. MD Valentina Subjective Patient was seen and examined in 311. Follow-up back surgery. Patient was seen walking throughout the halls. She is feeling well today denies any further dizziness. Her blood pressure has since improved. She denies fever, chills, sweats, lightheadedness, dizziness, chest pain, shortness breath, nausea, vomiting, abdominal pain. She has smoked since age of 16 and is anxious to go home so she can start smoking again. Review of Systems Review of Systems: All systems reviewed & are unremarkable except as noted in HPI & below Physical Exam Physical Exam: Gen: Petite, elderly, female, sitting up in bedside chair, WD/WN, NAD, A&O x3 HEENT: Normocephalic, atraumatic, conjunctivae moist, sclerae anicteric, mucous membranes moist. Lung: Clear to Auscultation bilaterally, no wheezes/rales/rhonchi Heart: Regular rate, regular rhythm, no murmurs, rubs, or gallops Abdomen: Soft, NT, ND +BS x 4 Extremities: No edema Skin: Warm, no rash, negative turgor. Results & Data Results & Data Vital Signs (Past 12 Hours) Vital Signs Temp Pulse Resp BP Pulse Ox O2 Del Method 02/03/23 07:03 36.4 C L 52 L 16 120/64 99 Room Air Laboratory Results Short CBC 02/02/23 02/03/23 Range/Units 15:00 06:45 WBC 9.66 11.17 H (4.8-10.8) K/ul Hgb 11.5 L 12.0 (12.0-16.0) g/dl Hct 34.5 L 35.9 L (37.0-47.0) % Plt Count 285 272 (130-400) K/uL BMP 02/03/23 06:45 Sodium 137 Potassium 4.6 Chloride 108 H Carbon Dioxide 23 BUN 19 Creatinine 0.70 Glucose 80 Calcium 8.7 Medications Administered Current Inpatient Medications Acetaminophen (Acetaminophen 500 Mg Tab) 1,000 mg PO Q8H PRN PRN Reason: MILD Pain Scale 1,2,3 & Pre PT Stop: 03/03/23 13:43 Last Admin: 02/02/23 01:52 Dose: 1,000 mg Al Hydrox/Mg Hydrox/Simethicone (Aluminum/Magnesium Susp 30 Ml Udc) 30 ml PO Q6H PRN PRN Reason: Dyspepsia Stop: 03/03/23 13:43 Aspirin (Aspirin 81 Mg Ectab) 81 mg PO QPM TRINI Stop: 03/03/23 20:59 Last Admin: 02/02/23 20:32 Dose: 81 mg Bisacodyl (Bisacodyl 10 Mg Supp) 10 mg [place] DAILY PRN PRN Reason: Constipation Stop: 03/03/23 13:43 Carvedilol (Carvedilol 3.125 Mg Tab) 3.125 mg PO BID [facility] Stop: 03/03/23 20:59 Diphenhydramine HCl (Diphenhydramine Capsule 25 Mg Cap) 25 mg PO Q6H PRN PRN Reason: Allergic Rhinitis/Insomnia Stop: 03/03/23 13:43 Famotidine (Famotidine 20 Mg Tab) 20 mg PO Q12H PRN PRN Reason: Dyspepsia Stop: 03/03/23 13:43 Fenofibrate (Fenofibrate Nanocrystallized 145 Mg Tablet) 145 mg PO QAM [facility] Stop: 03/04/23 08:59 Last Admin: 02/03/23 09:23 Dose: 145 mg Hydromorphone HCl (Hydromorphone Inj 0.5 Mg/0.5 Ml Syr) 0.5 mg IV Q3H PRN PRN Reason: MODERATE Pain (Scale 4,5,6) & Pre PT Stop: 02/15/23 13:43 Hydromorphone HCl (Hydromorphone Inj 1 Mg/Ml Syringe) 1 mg IV Q3H PRN PRN Reason: SEVERE Pain (Scale 7,8,9,10) Stop: 02/15/23 13:43 Hydroxyzine HCl (Hydroxyzine Hcl 25 Mg Tab) 25 mg PO Q8H PRN PRN Reason: Anxiety Stop: 03/03/23 13:43 Promethazine HCl 12.5 mg/ (Sodium Chloride) 50.5 mls @ 202 mls/hr IV Q6H PRN PRN Reason: Nausea &/or Vomiting Stop: 03/03/23 13:43 Dexamethasone 6 mg/ Syringe 1.5 mls @ 1 mls/min IV DAILY [facility] Stop: 02/04/23 09:02 Last Admin: 02/03/23 09:23 Dose: 1 mls/min Influenza Virus Vaccine Quadrival (Do Not Administer Flu Vaccine) 1 each N/A PRN PRN PRN Reason: Notification Stop: 03/03/23 13:43 Lactobacillus Acidophilus (Advanced Probiotic 1250 Mg Capsule) 2 cap PO QAM [facility] Stop: 03/04/23 08:59 Last Admin: 02/03/23 09:24 Dose: 2 cap Levothyroxine Sodium (Levothyroxine Sodium 25 Mcg Tablet) 25 mcg PO DAILYBB [facility] Stop: 03/04/23 06:29 Last Admin: 02/03/23 05:38 Dose: 25 mcg Lisinopril (Lisinopril 5 Mg Tab) 5 mg PO QAM [facility] Stop: 03/04/23 08:59 Last Admin: 02/02/23 08:31 Dose: 5 mg Lorazepam (Lorazepam 0.5 Mg Tab) 0.5 mg PO Q8H PRN PRN Reason: Sedation/Anxiety Stop: 03/03/23 13:43 Lorazepam (Lorazepam 2 Mg/1 Ml Vial) 0.5 mg IV Q8H PRN PRN Reason: Sedation/Anxiety Stop: 03/03/23 13:43 Magnesium Hydroxide (Magnesium Hydroxide Susp 30 Ml Udc) 30 ml PO Q24H PRN PRN Reason: Constipation Stop: 03/03/23 13:43 Metoclopramide HCl (Metoclopramide Hcl Inj 5 Mg/Ml 2 Ml Vial) 10 mg IV Q6H PRN PRN Reason: Nausea &/or Vomiting Stop: 03/03/23 13:43 Miscellaneous (Remove Nicoderm Patch) 1 each N/A DAILY@0859 [facility] Stop: 03/04/23 08:58 Last Admin: 02/03/23 09:34 Dose: Not Given Naloxone HCl (Naloxone Hcl 0.4 Mg/1 Ml Vial/Carp) 0.1 mg IV Q5M PRN PRN Reason: Oversedation/Resp depression Stop: 03/03/23 13:43 Nicotine (Nicotine 7 Mg/24 Hr Tdsy) 7 mg TD [facility] Stop: 03/03/23 12:29 Last Admin: 02/03/23 09:29 Dose: 7 mg Ondansetron HCl (Ondansetron Inj 2 Mg/Ml 2 Ml Vial) 4 mg IV Q6H PRN PRN Reason: Nausea &/or Vomiting Stop: 03/03/23 13:43 Ondansetron HCl (Ondansetron 4 Mg Od Tab) 4 mg PO Q6H PRN PRN Reason: Nausea Stop: 03/03/23 13:43 Oxycodone HCl (Oxycodone Hcl Ir 5 Mg Tab (Immediate Release)) 5 - 10 mg PO Q4H PRN PRN Reason: Pain & Pre PT Stop: 02/15/23 13:43 Pneumococcal Polyvalent Vaccine (Do Not Administer Pneumococcal Vaccine) 1 each N/A PRN PRN PRN Reason: Notification Stop: 03/03/23 13:43 Polyethylene Glycol (Polyethylene (Miralax) 17 Gm Pack) 17 gm PO Q6 [facility] Stop: 03/04/23 05:59 Last Admin: 02/03/23 12:46 Dose: Not Given Rosuvastatin Calcium (Rosuvastatin Calcium 20 Mg Tab) 20 mg PO QAM [facility] Stop: 03/04/23 08:59 Last Admin: 02/03/23 09:24 Dose: 20 mg Senna/Docusate Sodium (Docusate Sodium/Senna 50/8.6mg Tab) 2 tab PO HS [facility] Stop: 03/03/23 20:59 Last Admin: 02/02/23 20:32 Dose: 2 tab Sodium Biphosphate/Sodium Phosphate (Sod Phosphate/Sod Biphosphate Enema 132 Ml Btl) 132 ml [place] ONE PRN PRN Reason: Constipation Stop: 03/03/23 13:43 Tramadol HCl (Tramadol Hcl 50 Mg Tablet) 50 - 100 mg PO Q4H PRN PRN Reason: Moderate-Severe pain & Pre PT Stop: 03/03/23 13:43 Last Admin: 02/03/23 05:47 Dose: 50 mg
[2023-02-03] MEDS: ACETAMINOPHEN 500 MG TAB PO PRN (15:18)
--- NOTE | 2023-02-12 10:24 | Coding Query ---
To promote full compliance with coding requirements relating to patient care, provider participation is requested in all cases of inpatient coder uncertainty. Please assist us with the question(s) below: Coding Question(s): The diagnosis(es) below was documented in the 02/01 Hospitalist Consult then subsequently fell off all further documentation. Please indicate if it is still a possible diagnosis or ruled out. Physician's Response(s): Acute Blood Loss Anemia ( ) Diagnosed and POA ( ) Diagnosed and not POA ( x ) Ruled out ( ) Other (please specify) MTDD
== END 2023-02-03 16:29 | disposition home health service (06) | DRG 455 ==
LOC: ASU 08:08 → 3E 12:13